=== PATIENT | female | born 1960 | race Caucasian/White ===

== ENCOUNTER 2019-02-18 16:19 | Emergency (ER) | payer MEDICARE, MEDICAID ==
[~2019-02-18] VITALS: Ht 160 cm; Wt 49.9 kg
[2019-02-18 16:54] VITALS: BP 123/81
[2019-02-18 17:18] LABS: MEAN CORPUSCULAR HEMOGLOBIN 32.3 pg (27.0-34.8); MEAN CORPUSCULAR HGB CONC 32.8 g/dL (32.4-35.8); MEAN CORPUSCULAR VOLUME 98.6 fL (80-100); MEAN PLATELET VOLUME 9.1 fL (7.4-10.4); PLATELET COUNT 326 x10^3/uL (130-400); RED BLOOD COUNT 4.81 x10^6/uL (3.82-5.3); RED CELL DISTRIBUTION WIDTH 13.3 % (9.6-15.2)
[2019-02-18 17:27] LABS: ALBUMIN 4.3 g/dL (3.4-5.0); ANION GAP 4 mmol/L (5-15); CALCIUM 9.7 mg/dL (8.5-10.1); CHLORIDE 107 mmol/L (98-107)
[2019-02-18 17:31] LABS: ALANINE AMINOTRANSFERASE 23 U/L (12-78); ALKALINE PHOSPHATASE 50 U/L (45-117); BILIRUBIN,TOTAL 0.6 mg/dL (0.2-1.0); CREATININE 0.93 mg/dL (0.55-1.02); TOTAL PROTEIN 7.9 g/dL (6.4-8.2)
[2019-02-18 17:42] LABS: MD YES
[2019-02-18 17:44] LABS: BAND#(MANUAL) 1.57 x10^3/uL; BANDS%(MANUAL) 9 % (0-7); LYMPH#(MANUAL) 1.39 x10^3/uL (1-3.4); LYMPHS% (MANUAL) 8 % (22-44); MONOS#(MANUAL) 0.35 x10^3/uL (0.3-2.7); MONOS% (MANUAL) 2 % (2-9); SEG#(MANUAL) 14.09 x10^3/uL (1.8-6.8); SEGS% (MANUAL) 81 % (42-75)
[2019-02-18 17:45] LABS: <PLATELET ESTIMATE> ADEQUATE; <RBC MORPHOLOGY> NORMAL; LARGE PLATELETS 1+
--- NOTE | 2019-02-18 18:35 | NUR ---
Pt to room from lobby.
--- NOTE | 2019-02-18 18:52 | NUR ---
received report from DAMIAN Orantes
--- NOTE | 2019-02-18 18:58 | NUR ---
first encounter with patient, patient was angry, states that the staff that roomed her was rude. she was asking for a blanket and looking for him but unable to. other staff gave her a blanket. patient was asked by this RN if she can give me a urine sample states she cant give me at this time.
--- NOTE | 2019-02-18 19:00 | NUR ---
patient still angry about what happened. states that she is leaving. dressed up and walked out.
== END 2019-02-18 19:31 | disposition left against medical advice (07) ==
LOC: ED 19:20
DX: R10.11 Right upper quadrant pain (principal); R11.0 Nausea
CPT/HCPCS: 36415; 76700; 80053; 83690; 85025; 99284